=== PATIENT | male | born 1965 | race Asian ===

== ENCOUNTER 2016-12-12 14:54 | Emergency (ER) | payer MEDICAID ==
--- NOTE | 2016-12-12 16:34 | ED Physician Chart ---
Chief Complaint/HPI - Patient Information Date Seen:: 12/12/16 Time Seen:: 16:10 Chief Complaint:: trauma right long finger History of Present Illness:: At about noon the patient was changing the timing belt on his car and caught his right long finger. Patient is right-hand dominant Allergies:: Allergies Allergy/AdvReac Type Severity Reaction Status Date / Time No Known Allergies Allergy Verified 12/12/16 15:05 Vitals:: Vital Signs - 8 hr 12/12/16 12/12/16 14:59 15:18 Temp 98.2 F 98.2 F HR 88 88 RR 16 18 BP 137/93 137/93 O2 Sat % 98 98 Historian:: Patient, Family Member Review:: Nurse's Note Reviewed Review of Systems - Review of Systems General/Constitutional: No fever, No chills Skin: Skin lesions Head: No headache Eyes: No loss of vision ENT: No earache Neck: No neck pain Cardio Vascular: No chest pain Pulmonary: No SOB GI: No nausea, No vomiting G/U: No dysuria Musculoskeletal: Bone or joint pain Endocrine: No polyuria Psychiatric: No prior psych history Hematopoietic: No bruising Allergic/Immuno: No urticaria Neurological: No syncope, No focal symptoms Past Medical History - Past Medical History Past Medical History: No significant medical hx Family History: Diabetes Melitus, HTN Social History: Non Smoker, No Alcohol Psychiatricy History: None Family Medical History - Family Member Mother History Unknown: Yes Physical Exam - Physical Examination General/Constitutional: Awake, Well-developed, well-nourished, Alert Head: Atraumatic Eyes: Lids, conjuctiva normal, PERRL Other Skin comments:: Right long finger: There is a maceration type injury of the palmar distal segment with fat visible. A 2 cm vertical midline laceration of the distal segment is noted. The tip of the finger is amputated at the level of the tip of the nail. When the laceration was cleansed gently with normal saline oozing of blood occurred from the laceration but also from an area adjacent to the laceration. ENMT: External ears, nose nl, TM canals nl Neck: No nuchal rigidity Respiratory: Nl effort/Exclusion, Clear to Auscultation, No Wheeze/Rhonchi/Rales Cardio Vascular: RRR GI: No tenderness/rebounding/guarding, No organomegaly, No hernia, Normal BS's, Nondistended, No mass/bruits : No CVA tenderness Other Extremities comments:: See under skin above Neuro/Psych: Alert/oriented, Normal sensory exam, No focal deficits Labs/Radiology/EKG Results - Radiology Results Results: X-ray right long finger negative for fracture Assessment - Assessment General Assessment: 1% Xylocaine used for digital block; laceration cleansed gently with normal saline; bleeding stopped with application of 1/2 inch and 1/4 inch Steri-Strips ; Band-Aids and 2 inch Saqib applied. Patient told to leave the bandage on as long as possible. Patient was given a tetanus booster. Tetanus hyper immune globulin (also known as Hyper-Tet) is not stocked by our pharmacy so patient and his family were advised to contact the [facility] tomorrow for possibly getting a tetanus hyperimmune globulin injection. ED Septic Shock - . Is Septic Shock (SBP<90, OR Lactate>4 mmol\L) present?: No - <6hrs of presentation: Vital Signs: Vital Signs - 8 hr 12/12/16 12/12/16 14:59 15:18 Temp 98.2 F 98.2 F HR 88 88 RR 16 18 BP 137/93 137/93 O2 Sat % 98 98 Reassessment (Disposition) - Reassessment Reassessment Condition:: Unchanged - Diagnosis Diagnosis:: Maceration injury distal segment right long finger - Aftercare/Follow up Instructions Aftercare/Follow-Up Instructions:: Refer to Discharge Instructions Medication Prescribed:: Prescription for [place] 10/325 #20 to take 14 times a day as necessary; prescription for Keflex 500 mg 4 times a day for one week - Patient Disposition Discharge/Transfer:: Home Condition at Disposition:: Stable, Improved ED Discharge Plan - Patient Disposition Instructions: Laceration Care, Adult, [id number] Additional Instructions: TOLERATED. KEEP DRESSING CLEAN AND DRY.
--- NOTE | 2016-12-13 09:30 | Diagnostic Imaging Report ---
Right hand (3 views) HISTORY: Laceration The exam demonstrates soft tissue disruption adjacent to the distal portion of the middle finger. No associated bony abnormalities. No fractures. Joint spaces appear normal. IMPRESSION: 1. No acute bony abnormalities 2. Soft tissue disruption about the distal portion of the middle finger.
== END 2016-12-12 17:00 | disposition home or self-care (01) ==
LOC: ER 14:54
DX: S69.91XA Unspecified injury of right wrist, hand and finger(s), initial encounter (principal); X58.XXXA Exposure to other specified factors, initial encounter; Y93.89 Activity, other specified; Y92.89 Other specified places as the place of occurrence of the external cause; Y99.8 Other external cause status
CPT/HCPCS: 73130-TC-RT; J2001; Z7502; Z7610